=== PATIENT | male | born 2000 | race American Indian/Alaskan Native ===

== ENCOUNTER 2020-05-02 19:53 | Emergency (ER) | payer SELFPAY ==
[~2020-05-02] VITALS: Ht 172.7 cm; Wt 132.9 kg
== END 2020-05-02 20:28 | disposition left against medical advice (07) ==
LOC: ED 19:53
DX: Z53.21 Procedure and treatment not carried out due to patient leaving prior to being seen by health care provider (principal)

== ENCOUNTER 2020-07-14 19:57 | Emergency (ER) | payer SELFPAY ==
[~2020-07-14] VITALS: Ht 172.7 cm; Wt 132.9 kg
== END 2020-07-14 20:32 | disposition home or self-care (01) ==
LOC: ED 19:57
DX: K59.00 Constipation, unspecified (principal)

== ENCOUNTER 2021-06-19 22:08 | Emergency (ER) | payer OTHER ==
[~2021-06-19] VITALS: Ht 172.7 cm; Wt 140.6 kg
== END 2021-06-19 23:55 | disposition home or self-care (01) ==
LOC: ED 22:08
DX: J06.9 Acute upper respiratory infection, unspecified (principal); Z20.822 Contact with and (suspected) exposure to COVID-19; Z87.891 Personal history of nicotine dependence
CPT/HCPCS: 99284; C9803; U0003

== ENCOUNTER 2022-04-15 21:20 | Emergency (ER) | payer OTHER ==
[~2022-04-15] VITALS: Ht 172.7 cm; Wt 134.8 kg
[2022-04-16] MEDS ORDERED: PENICILLIN V P500 MG PO (00:25)
== END 2022-04-16 00:35 | disposition home or self-care (01) ==
LOC: ED 21:20
DX: K02.9 Dental caries, unspecified (principal); Z87.891 Personal history of nicotine dependence
CPT/HCPCS: 99282

== ENCOUNTER 2022-07-11 13:48 | Emergency (ER) | payer OTHER ==
[~2022-07-11] VITALS: Ht 172.7 cm; Wt 134.8 kg
[~2022-07-11 13:48] MED LIST: PENICILLIN V P500 MG PO
== END 2022-07-11 17:45 | disposition home or self-care (01) ==
LOC: ED 13:48
DX: F41.9 Anxiety disorder, unspecified (principal); F19.10 Other psychoactive substance abuse, uncomplicated; F43.10 Post-traumatic stress disorder, unspecified; Z87.891 Personal history of nicotine dependence
CPT/HCPCS: 36415; 80053; 81001; 84443; 85025; 99283; G0480